=== PATIENT | male | born 1965 | race African-American/Black ===

== ENCOUNTER → 2022-05-22 | Emergency (ER) | payer BC, SELFPAY ==
[~2022-05-22] MED LIST: Ondansetron PF 4 MG/2 ML Vial ONE; niCARdipine 25 MG/10 ML SDV ONE
[2022-05-22 07:59] LABS: #Monocytes 0.2 10x3/uL (0.0-1.1); #Neutrophils 6.5 10x3/uL (1.5-8.4); %Basophils 0.3 % (0.0-2.0); %Eosinophils 0.4 % (0.0-6.0); %Lymphocytes 9.8 % (18.0-47.0); %Monocytes 2.8 % (0.0-10.0); %Neutrophils 86.4 % (40.0-75.0); Hemoglobin 12.4 g/dL (13.5-17.5); Mean Corpuscular HGB CONC 32.9 g/dL (32.0-36.0); Mean Corpuscular Hemoglobin 29.5 pg (27.0-33.0); Mean Corpuscular Volume 89.5 fl (81.2-95.1); Mean Platelet Volume 9.1 fl (7.4-10.4); Platelet Count 327 10x3/uL (150-450); RBC Distribution Width 12.7 % (11.5-14.5); Red Blood Cell (RBC) Count 4.21 10x6/uL (4.32-5.72); White Blood Cell (WBC) Count 7.5 10x3/uL (3.5-10.5)
[2022-05-22 07:59] LABS: Actual Bicarbonate (HCO3v) 23 mEq/L (22-28); Base Excess -2.6 mEq/L (-2 - +2); Calcium, Ionized (venous) 1.18 mmol/L (1.16-1.32); Chloride (VBG) 101 mmol/L (98-106); Puncture Site Other Site; RapidComm Collect By CBN; Sodium 143.5 mmol/L (133-146); pH (venous) 7.35 (7.32-7.43)
[2022-05-22 08:04] LABS: Acetaminophen Less than 10.0 mcg/mL (10.0-30.0); Alcohol Less than 10 mg/dL (Less than 10); Salicylate Less than 8.0 mg/dL (15.0-30.0)
[2022-05-22 08:09] LABS: ALT (SGPT) 32 U/L (8-55); AST (SGOT) 30 U/L (5-34); Albumin 4.1 g/dL (3.5-5.0); Alkaline Phosphatase 48 U/L (40-110); Anion Gap 18 mmol/L (10-20); BUN (Urea Nitrogen) 28 mg/dL (8.4-25.7); Bilirubin, Total 0.5 mg/dL (0.2-1.2); Calc. Creatinine Clearance 0 mL/min (70-130); Calcium 9.4 mg/dL (7.8-10.44); Carbon Dioxide 24 mmol/L (22-29); Chloride 106 mmol/L (98-107); Estimated GFR 29; Glucose 197 mg/dL (70-105); Lipase 46 U/L (8-78); Potassium 3.4 mmol/L (3.5-5.1); Protein, Total 7.1 g/dL (6.0-8.3); Sodium 145 mmol/L (136-145)
[2022-05-22 08:22] LABS: PTT 22.8 sec (22.0-33.0); Prothrombin Time 10.7 sec (9.5-12.1)
[2022-05-22 08:24] LABS: CKMB 11.6 ng/mL (0-6.6)
[2022-05-22 08:26] LABS: Magnesium 2.1 mg/dL (1.6-2.6)
[2022-05-22 08:30] LABS: SARS-CoV-2 NAA Rapid Test Not Detected (NotDetected)
[2022-05-22 11:34] LABS: Digoxin Less than 0.15 ng/mL (0.8-2.0)
== END ==
LOC: EDBD → CSHERS 07:11
DX: I61.4 Nontraumatic intracerebral hemorrhage in cerebellum (principal); I16.1 Hypertensive emergency; I10 Essential (primary) hypertension; E11.9 Type 2 diabetes mellitus without complications; I48.91 Unspecified atrial fibrillation; Z20.822 Contact with and (suspected) exposure to COVID-19
CPT/HCPCS: 36416; 70450; 71045; 80053; 80162; 80307; 82553; 82805; 83605; 83690; 83735; 83880; 84484; 85025; 85610; 85730; 93005; 96365; 96366; 96375; 96376; J2405